=== PATIENT | female | born 1945 | race Caucasian/White ===

== ENCOUNTER 2021-05-19 06:32 | Emergency (ER) | payer MEDICARE, OTHER ==
[2021-05-19] MEDS ORDERED: Ketorolac Tromethamine 30 MG/ML VIAL ONE (07:39)
== END 2021-05-19 08:38 | disposition home or self-care (01) ==
LOC: ERS 06:32
DX: M25.562 Pain in left knee (principal); I10 Essential (primary) hypertension
CPT/HCPCS: 96372; J1885